=== PATIENT | male | born 1955 | race Caucasian/White ===

== ENCOUNTER 2018-10-26 15:20 | Emergency (ER) | payer OTHER, MEDICAID ==
[~2018-10-26] VITALS: Ht 177.8 cm; Wt 122.5 kg
[~2018-10-26 15:20] MED LIST: AMOXICILLIN 50500 M1 PO; ASPIR 8181 M1 PO; ASPIR 8181 MG PO; ATORVASTATIN CA40 MG PO; CEFTIN 250 MG250 MG PO; CIPRO500 MG PO; CIPROFLOXACIN500 M1 PO; DOXYCYCLINE 10100 MG PO; KEFLEX500 MG PO; LOPRESSOR50; LOPRESSOR50 PO; METFORMIN HCL500 MG PO; NITROSTAT0.3 MG SUBLING; OXYCODONE HCL15 MG PO; PROAIR HFA8.5 GM INH; PROMETHAZINE/C118 ML PO; ROXICODONE15 MG PO; TOPROL XL50 MG PO; ZPAK PO
[2018-10-26 16:09] LABS: ABSOLUTE BASOPHILS 0.1 thou/uL (0.0-0.2); ABSOLUTE EOSINOPHILS 0.2 thou/uL (0.0-0.7); ABSOLUTE LYMPHOCYTES 2.1 thou/uL (0.8-5.3); ABSOLUTE MONOCYTES 1.3 thou/uL (0.0-1.2); ABSOLUTE NEUTROPHILS 7.9 thou/uL (1.6-8.1); BASOPHILS 0.5 %; HEMATOCRIT 44.4 % (42.0-52.0); HEMOGLOBIN 14.9 gm/dL (14.0-18.0); LYMPHOCYTES 18.4 %; MCH 28.9 pg (26.0-34.0); MCHC 33.5 g/dL (28.0-37.0); MCV 86.3 fL (80.0-100.0); MPV 6.8 fl. (7.2-11.1); NUCLEATED RBCS 0 /100WBC; PLATELET COUNT* 270 thou/uL (150-400); POLYS 68.1 %; RBC 5.15 mil/uL (4.50-6.00); RDW-CV 13.9 % (10.5-14.5); WBC 11.6 thou/uL (4.0-11.0)
[2018-10-26] MEDS ORDERED: KEFLEX500 M1 PO (17:03)
[2018-10-26 17:13] VITALS: BP 130/87
== END 2018-10-26 17:14 | disposition home or self-care (01) ==
LOC: M.ERS 15:20
PROVIDERS: Nurse Practitioner Family
DX: R59.1 Generalized enlarged lymph nodes (principal); I10 Essential (primary) hypertension; F17.200 Nicotine dependence, unspecified, uncomplicated; E11.9 Type 2 diabetes mellitus without complications; Z79.82 Long term (current) use of aspirin; Z79.84 Long term (current) use of oral hypoglycemic drugs; Z79.899 Other long term (current) drug therapy; Z91.041 Radiographic dye allergy status; Z88.2 Allergy status to sulfonamides; Z88.8 Allergy status to other drugs, medicaments and biological substances

== ENCOUNTER 2019-01-02 06:43 | Inpatient (IN) | payer OTHER, MEDICAID ==
[~2019-01-02] VITALS: Ht 177.8 cm; Wt 117.9 kg
[~2019-01-02 06:43] MED LIST changes: -ATORVASTATIN CA40 MG PO; +KEFLEX500 M1 PO; +LIPITOR40 MG PO
[2019-01-02 06:58] VITALS: BP 109/73
[2019-01-02 07:30] LABS: ABSOLUTE BASOPHILS 0.1 thou/uL (0.0-0.2); ABSOLUTE EOSINOPHILS 0.3 thou/uL (0.0-0.7); ABSOLUTE LYMPHOCYTES 1.6 thou/uL (0.8-5.3); ABSOLUTE MONOCYTES 1.6 thou/uL (0.0-1.2); ABSOLUTE NEUTROPHILS 10.5 thou/uL (1.6-8.1); BASOPHILS 0.4 %; EOSINOPHILS 1.8 %; HEMATOCRIT 46.7 % (42.0-52.0); LYMPHOCYTES 11.5 %; MCH 29.7 pg (26.0-34.0); MCHC 34.3 g/dL (28.0-37.0); MCV 86.5 fL (80.0-100.0); MONOCYTES 11.5 %; MPV 7.1 fl. (7.2-11.1); NUCLEATED RBCS 0 /100WBC; PLATELET COUNT* 235 thou/uL (150-400); POLYS 74.8 %; RDW-CV 13.9 % (10.5-14.5); WBC 14.1 thou/uL (4.0-11.0)
[2019-01-02 07:41] LABS: CALCIUM 9.3 mg/dL (8.5-10.1); CREATININE 0.8 mg/dL (0.6-1.3); POTASSIUM 4.2 mmol/L (3.5-5.1)
[2019-01-02 07:43] LABS: URINE BLOOD 3+ (Negative); URINE CLARITY CLEAR; URINE COLOR YELLOW; URINE GLUCOSE-RANDOM NEGATIVE (Negative); URINE KETONES NEGATIVE (Negative); URINE NITRITE-REFLEX NEGATIVE (Negative); URINE PROTEIN 3+ (Negative); URINE SPECIFIC GRAVITY >= 1.030 (1.005-1.030)
[2019-01-02 07:44] LABS: URINE BILIRUBIN 1+ (Negative); URINE LEUKOCYTES-REFLEX 2+ (Negative)
[2019-01-02 07:46] LABS: ICTOTEST (BILI CONFIRMATORY) Negative (Negative)
[2019-01-02 07:52] LABS: BACTERIA-REFLEX 1-9 Few /HPF (None Seen); CASTS None Seen /LPF (None Seen); CRYSTALS None Seen /LPF (None Seen); SQUAMOUS 0-3 Few /LPF (0-3); URINE RBC >20 Many /HPF (0-2); URINE WBC-REFLEX >25 Many /HPF (0-5)
[2019-01-02 08:00] LABS: BE 1.5 mmol/L (-2 to +3); PO2 80.4 mmHg (75.0-100.0); pH 7.436 (7.340-7.450)
[2019-01-02 12:18] VITALS: BP 105/62
[2019-01-02 13:00] VITALS: BP 154/87
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
[2019-01-02 15:20] VITALS: BP 149/80
--- NOTE | 2019-01-02 18:37 | NUR ---
PATIENT ALERT AND ORIENTED X 4. VITAL SIGNS STABLE ON ROOM AIR. AFEBRILE. CATHETER PATENT AND DRAINING. IV PATENT WITH FLUIDS INFUSING. PAIN BEING MANAGED WITH PO MEDICATION. DENIES NAUSEA. FALL PRECAUTIONS IN PLACE AND BED ALARM ON. HOURLY ROUNDS MAINTAINED THROUGHOUT THE SHIFT. CALL LIGHT WITHIN REACH. NURSING WILL CONTINUE TO MONITOR.
[2019-01-02 21:53] VITALS: BP 146/83
[2019-01-03 04:42] LABS: ABSOLUTE EOSINOPHILS 0.4 thou/uL (0.0-0.7); ABSOLUTE LYMPHOCYTES 2.2 thou/uL (0.8-5.3); ABSOLUTE MONOCYTES 1.4 thou/uL (0.0-1.2); ABSOLUTE NEUTROPHILS 6.1 thou/uL (1.6-8.1); BASOPHILS 0.3 %; CALCIUM 8.5 mg/dL (8.5-10.1); CREATININE 0.6 mg/dL (0.6-1.3); EOSINOPHILS 4.4 %; HEMATOCRIT 39.8 % (42.0-52.0); LYMPHOCYTES 21.6 %; MCH 29.1 pg (26.0-34.0); MCHC 33.8 g/dL (28.0-37.0); MCV 86.2 fL (80.0-100.0); MONOCYTES 13.5 %; MPV 6.8 fl. (7.2-11.1); NUCLEATED RBCS 0 /100WBC; PLATELET COUNT* 195 thou/uL (150-400); POLYS 60.2 %; POTASSIUM 4.3 mmol/L (3.5-5.1); RBC 4.61 mil/uL (4.50-6.00); RDW-CV 13.8 % (10.5-14.5); WBC 10.1 thou/uL (4.0-11.0)
[2019-01-03 04:50] LABS: HEMOGLOBIN 13.4 gm/dL (14.0-18.0)
--- NOTE | 2019-01-03 04:59 | NUR ---
PATIENT DID NOT REPORT ANY PAIN. JACOBSON CATHETER PLACED AT 2300 WITHOUT ANY ISSUES, URINE OUTPUT CONTINUOUS THROUGH SHIFT. HE DID NOT REPORT ANY PAIN. DID REFUSE INSULIN AT BEDTIME AND WAS CONCERNED ABOUT HIS METFORMIN DOSE, THERE IS ONE FOR 500 MG IN THE AM BUT HE WAS QUESTIONING WHY HE WAS NOT GETTING ONE AT NIGHT. AWAITING CULTURES FOR DC ABX. WILL CONTINUE TO MONITOR.
[2019-01-03 09:00] VITALS: BP 130/77
--- NOTE | 2019-01-03 17:10 | NUR ---
ASSUMED CARE OF PATIENT AT APPROX 0730. ALERT AND ORIENTED X4. ASSESSMENT CPMPLETED AND CHARTED. VSS ON ROOM AIR. PAIN MANAGED WITH SCHEDULED OXY. PATIENT REQUESTED AN "AIR BED" BECAUSE HE IS UNCONFORTABLE, AND HE WANTS A TRAPEZE SO HE CAN GET UP EASIER. CALLED DR CASILLAS, ORDERS GIVEN AND CALLED HOUSE SUP TO SET UP DELIVERY. NO OTHER COMPLAINTS THIS SHIFT. ACCUCHECKS AC, PATIENT REFUSED INSULIN HE DOES NOT USE IT AT HOME, HE ONLY USES METFORMIN. FLUIDS AND ANTIBIOTICS INFUSED ORDERED. FALL PRECAUTIONS IN PLACE. CALL LIGHT WITHIN REACH. HOURLY ROUNDS COMPLETED. NURSING WILL CONTINUE TO MONITOR.
[2019-01-03 20:05] VITALS: BP 149/72
--- NOTE | 2019-01-04 05:34 | NUR ---
PATIENT WAS ABLE TO SLEEP THROUGH NIGHT, REPORTED NO NEW PAIN. HE WAS GIVEN SCHEDULED OXYCODONE 2X. JACOBSON OUTPUT STILL CLEAR AND CONTINUOUS. NO NEW REPORTS OF WORSENING OF CONDITION. THE NEW BED HAS HELPED HIM WITH HIS DISCOMFORT. HOURLY ROUNDS MADE, WILL CONTINUE TO MONITOR.
[2019-01-04 07:50] VITALS: BP 157/87
[2019-01-04 08:44] LABS: ABSOLUTE EOSINOPHILS 0.4 thou/uL (0.0-0.7); ABSOLUTE LYMPHOCYTES 2.1 thou/uL (0.8-5.3); ABSOLUTE NEUTROPHILS 4.7 thou/uL (1.6-8.1); BASOPHILS 0.3 %; EOSINOPHILS 5.2 %; HEMATOCRIT 38.2 % (42.0-52.0); HEMOGLOBIN 13.1 gm/dL (14.0-18.0); LYMPHOCYTES 25.7 %; MCH 29.7 pg (26.0-34.0); MCHC 34.4 g/dL (28.0-37.0); MCV 86.4 fL (80.0-100.0); MONOCYTES 12.2 %; MPV 6.6 fl. (7.2-11.1); NUCLEATED RBCS 0 /100WBC; PLATELET COUNT* 194 thou/uL (150-400); POLYS 56.6 %; RBC 4.42 mil/uL (4.50-6.00); RDW-CV 13.8 % (10.5-14.5); WBC 8.2 thou/uL (4.0-11.0)
[2019-01-04 09:10] LABS: ALBUMIN 2.4 g/dL (3.4-5.0); CALCIUM 8.7 mg/dL (8.5-10.1); CREATININE 0.6 mg/dL (0.6-1.3); POTASSIUM 4.1 mmol/L (3.5-5.1); TOTAL BILIRUBIN 0.3 mg/dL (<0.1-1.0); TOTAL PROTEIN 6.6 g/dL (6.4-8.2)
[2019-01-04 16:00] VITALS: BP 147/79
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
[2019-01-04 20:00] VITALS: BP 167/77
--- NOTE | 2019-01-04 20:43 | NUR ---
ASSUMED CARE OF PATIENT AT APPROX 0730. ALERT AND ORIENTED X4. ASSESSMENT COMPLETED AND CHARTED. VSS ON ROOM AIR. FLUIDS AND ANTIBIOTICS INFUSED ORDERED. PAIN MANAGED WITH SCHEDULED OXY. ACCUCHECKS AC, PATIENT TAKES ORALS ONLY. PATIENT HAS AN AIR FLUIDIZATION BED FROM [facility] TO REDUCE RISK FOR PRESSURE WOUNDS. BED IS HAVING ISSUES, [facility] PAGED AND THEY WILL BE COMING OUT TO CHECK IT OUT OR REPLACE IT. CALL LIGHT WITHIN REACH. HOURLY ROUNDS COMPLETED. NURSING WILL CONTINUE TO MONITOR.
[2019-01-05 03:15] VITALS: BP 183/87
[2019-01-05 04:30] VITALS: BP 158/80
[2019-01-05 04:31] LABS: ABSOLUTE EOSINOPHILS 0.4 thou/uL (0.0-0.7); ABSOLUTE LYMPHOCYTES 2.2 thou/uL (0.8-5.3); ABSOLUTE MONOCYTES 0.9 thou/uL (0.0-1.2); ABSOLUTE NEUTROPHILS 5.8 thou/uL (1.6-8.1); BASOPHILS 0.3 %; EOSINOPHILS 4.2 %; HEMATOCRIT 38.3 % (42.0-52.0); HEMOGLOBIN 12.8 gm/dL (14.0-18.0); LYMPHOCYTES 23.9 %; MCH 28.9 pg (26.0-34.0); MCHC 33.3 g/dL (28.0-37.0); MCV 86.9 fL (80.0-100.0); MPV 7.4 fl. (7.2-11.1); NUCLEATED RBCS 0 /100WBC; PLATELET COUNT* 200 thou/uL (150-400); POLYS 61.6 %; RBC 4.41 mil/uL (4.50-6.00); RDW-CV 13.8 % (10.5-14.5); WBC 9.4 thou/uL (4.0-11.0)
[2019-01-05 04:49] LABS: ALBUMIN 2.3 g/dL (3.4-5.0); CALCIUM 8.5 mg/dL (8.5-10.1); CREATININE 0.6 mg/dL (0.6-1.3); POTASSIUM 3.9 mmol/L (3.5-5.1); TOTAL BILIRUBIN 0.2 mg/dL (<0.1-1.0); TOTAL PROTEIN 6.6 g/dL (6.4-8.2)
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
[2019-01-05 08:30] VITALS: BP 158/84
[2019-01-05 11:53] VITALS: BP 158/84
[2019-01-05 12:07] VITALS: BP 158/84
[2019-01-05] MEDS ORDERED: CEFUROXIME500 MG PO (12:16)
--- NOTE | 2019-01-05 13:58 | NUR ---
PATIENT DISCHARGED FROM UNIT AT 1355. ALERT AND ORIENTED X 4. VITAL SIGNS STABLE ON ROOM AIR. AFEBRILE. IV DISCONTINUED. JACOBSON CATHETER DISCONTINUED. PAIN BEING MANAGED WITH PO MEDICATION. DENIES NAUSEA. DISCHARGE INSTRUCTIONS, MEDICATION INFORMATION, AND SCRIPT GIVEN TO PATIENT. LEFT WITH ALL BELGONINGS. PATIENT LEFT WITH SON VIA
[2019-01-05 14:00] VITALS: BP 158/84
== END 2019-01-05 13:55 | disposition home or self-care (01) | DRG 872 ==
LOC: M.ERS 06:43 → M.ORTHSURG 09:11 → M.TBA-ER 09:11 → M.ORTHSURG 12:24
PROVIDERS: Personal Emergency Response Attendant; ADMIT Internal Medicine
DX: A41.9 Sepsis, unspecified organism (principal); N39.0 Urinary tract infection, site not specified; G82.20 Paraplegia, unspecified; I10 Essential (primary) hypertension; F17.220 Nicotine dependence, chewing tobacco, uncomplicated; E11.65 Type 2 diabetes mellitus with hyperglycemia; E88.09 Other disorders of plasma-protein metabolism, not elsewhere classified; N31.9 Neuromuscular dysfunction of bladder, unspecified; B96.1 Klebsiella pneumoniae [K. pneumoniae] as the cause of diseases classified elsewhere; Z95.5 Presence of coronary angioplasty implant and graft; Z88.2 Allergy status to sulfonamides; Z88.8 Allergy status to other drugs, medicaments and biological substances; Z88.6 Allergy status to analgesic agent; Z91.041 Radiographic dye allergy status; Z23 Encounter for immunization

== ENCOUNTER 2020-03-25 16:12 | Emergency (ER) | payer OTHER, MEDICAID ==
[~2020-03-25] VITALS: Ht 175.3 cm; Wt 117.9 kg
--- NOTE | ~2020-03-25 | EKG ---
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
--- NOTE | ~2020-03-25 | EMS ---
[place] [address] EMS Patient Care Report Name: DIVINA RINALDI Room: PRE [facility]#: [id number] Admission: Attend Phys: Discharge: Date of : 51 Report #: [id number] THIS REPORT FOR: //name// Report Transmitted: 03/25/2020 16:29 EMS Care Summary [facility] Incident [id number] @ 03/25/2020 15:15 Incident Location [address] [place] [address] Patient DIVINA RINALDI Male, 64 Years 1955 Patient Address [address] [place] [address] Patient History Diabetes,Hypertension (HTN),Quadriplegia, Patient Allergies No known allergies, Chief Complaint Body Aches Disposition Transported No Lights/[place] Dispatch Reason Sick Person Transported To [facility] Narrative Med 1 and Engine 1 were dispatched for a [age] year-old male c/o body aches. Upon arrival, patients son was standing outside and directed us into the living room where the patient had a hospital bed set up due to the patient being a quadriplegic. The patient reported that he has had body aches for the last three days. The patient denied any other symptoms. The patient was moved to the stretcher via sheet and secure via seatbelts [place] [address] EMS Patient Care Report Name: DIVINA RINALDI Room: PRE [facility].#: [id number] Admission: Attend Phys: Discharge: Date of : 51 Report #: [id number] without incident. Med 1 was going to transport the patient to [facility] but they were on high volume so he chose [facility] instead. Patient was placed on the night monitor and vitals were obtained. Patient was AOX3, he had no fever and a blood glucose reading was obtained with a result of 183 mg/dL. Hospital report was given via radio with no questions or orders received or requested. Med 1 arrived at the hospital. Patient was moved into the ambulance via stretcher without incident. Patient care was transferred to ER staff in room 11. Med 1 returned back into service. KShook [id number] Initial Vitals @15:48P: 91,R: 18,BP: 132/85,SpO2: 95, @15:59P: 91,R: 18,BP: 146/77,GCS: 15,SpO2: 94,Revised Trauma: 12, @15:39P: 96,R: 18,BP: 146/89,Pain: 2/10,GCS: 15,Temp: 97.4F,Glucose: 183,SpO2: 95,Revised Trauma: 12, Assessments @16:02MENTAL:No Abnormalities,SKIN:No Abnormalities,HEENT:Head/Face: No Abnormalities,Eyes: No Abnormalities,Neck/Airway: No Abnormalities,LUNG SOUNDS:General: No Abnormalities,Left Upper: No Abnormalities,Right Upper: No Abnormalities,Left Lower: No Abnormalities,Right Lower: No Abnormalities,ABDOMEN:General: No Abnormalities,Left Upper: No Abnormalities,Right Upper: No Abnormalities,Left Lower: No Abnormalities,Right Lower: No Abnormalities,PELVIS//GI:EXTREMITIES:Left Leg: Paralysis,Right Leg: Paralysis,Left Arm: No Abnormalities,Right Arm: No Abnormalities,PULSE:NEURO:No Abnormalities, Impression Generalized Weakness Procedures @15:52StretcherResponse: Unchanged Timeline 15:15,Call Received 15:15,Dispatched 15:15,En Route 15:26,On Scene 15:27,At Patient 15:39,BP: 146/89 M,PULSE: 96,RR: 18 R,SPO2: 95 Ox,ETCO2: ,B,PAIN: 2,GCS: 15, [place] [address] EMS Patient Care Report Name: DIVINA RINALDI Room: PRE [facility].#: [id number] Admission: Attend Phys: Discharge: Date of : 51 Report #: [id number] 15:43,Depart Scene 15:48,BP: 132/85 M,PULSE: 91,RR: 18 R,SPO2: 95 Ox,ETCO2: ,BG: ,PAIN: ,GCS: , 15:52,Stretcher,Response: Unchanged 15:59,BP: 146/77 M,PULSE: 91,RR: 18 R,SPO2: 94 Ox,ETCO2: ,BG: ,PAIN: ,GCS: 15, 16:09,At Destination 16:47,Call Closed 16:47,In District Disclaimer v1.1 Copyright 2020 [employer] This EMS Care Summary contains data elements from the applicable legal record (which may be displayed differently). It is designed to provide pertinent information for the following purposes: continuity of care, clinical quality, and state data reporting. The complete legal record is available to ED staff and administrators of the receiving hospital in [employer]'s Patient Tracker. All data is provided "as is."
[~2020-03-25 16:12] MED LIST changes: +CEFUROXIME500 MG PO
[2020-03-25] MEDS ORDERED: NORVASC5 MG PO (16:28)
[2020-03-25] MEDS ORDERED: TOPROL XL50 MG PO (16:29)
[2020-03-25] MEDS ORDERED: VITAMIN C500 M2 PO (16:29)
[2020-03-25 16:40] LABS: ABSOLUTE BASOPHILS 0.1 thou/uL (0.0-0.2); ABSOLUTE LYMPHOCYTES 0.9 thou/uL (0.8-5.3); ABSOLUTE MONOCYTES 2.1 thou/uL (0.0-1.2); ABSOLUTE NEUTROPHILS 15.3 thou/uL (1.6-8.1); BASOPHILS 0.4 %; EOSINOPHILS 0.1 %; HEMATOCRIT 39.8 % (42.0-52.0); HEMOGLOBIN 13.3 gm/dL (14.0-18.0); LYMPHOCYTES 4.9 %; MCH 29.2 pg (26.0-34.0); MCHC 33.5 g/dL (28.0-37.0); MCV 87.2 fL (80.0-100.0); MONOCYTES 11.5 %; MPV 6.8 fl. (7.2-11.1); NUCLEATED RBCS 0 /100WBC; PLATELET COUNT* 216 thou/uL (150-400); POLYS 83.1 %; RBC 4.57 mil/uL (4.50-6.00); RDW-CV 13.7 % (10.5-14.5); WBC 18.4 thou/uL (4.0-11.0)
[2020-03-25 16:51] LABS: POTASSIUM 3.7 mmol/L (3.5-5.1)
[2020-03-25 16:56] LABS: ALBUMIN 2.6 g/dL (3.4-5.0); TOTAL BILIRUBIN 0.9 mg/dL (<0.1-1.0); TOTAL PROTEIN 7.4 g/dL (6.4-8.2)
[2020-03-25 18:05] LABS: URINE BILIRUBIN NEGATIVE (Negative); URINE BLOOD 1+ (Negative); URINE CLARITY CLEAR; URINE COLOR YELLOW; URINE GLUCOSE-RANDOM NEGATIVE (Negative); URINE KETONES NEGATIVE (Negative); URINE LEUKOCYTES-REFLEX 2+ (Negative); URINE NITRITE-REFLEX NEGATIVE (Negative); URINE PROTEIN 1+ (Negative); URINE SPECIFIC GRAVITY 1.025 (1.005-1.030)
[2020-03-25 18:10] LABS: BACTERIA-REFLEX >30 Many /HPF (None Seen); URINE WBC-REFLEX >25 Many /HPF (0-5)
[2020-03-25 18:11] LABS: CASTS None Seen /LPF (None Seen); MUCUS 0-3 Light strn/LPF (None Seen); SQUAMOUS NONE SEEN /LPF (0-3); URINE RBC 0-2 Rare /HPF (0-2)
[2020-03-25 18:12] LABS: CRYSTALS None Seen /LPF (None Seen)
[2020-03-25] MEDS ORDERED: AUGMENTIN 875-1 EACH PO (18:26)
[2020-03-25 20:24] VITALS: BP 132/72
== END 2020-03-25 20:24 | disposition home or self-care (01) ==
LOC: M.ERS 16:12
PROVIDERS: Emergency Medicine Emergency Medical Services
DX: N39.0 Urinary tract infection, site not specified (principal); Z20.828 Contact with and (suspected) exposure to other viral communicable diseases; I10 Essential (primary) hypertension; E11.9 Type 2 diabetes mellitus without complications; F17.220 Nicotine dependence, chewing tobacco, uncomplicated; Z79.899 Other long term (current) drug therapy; Z79.82 Long term (current) use of aspirin; Z88.8 Allergy status to other drugs, medicaments and biological substances; Z88.2 Allergy status to sulfonamides

== ENCOUNTER 2020-03-30 05:47 | Emergency (ER) | payer OTHER, MEDICAID ==
[~2020-03-30] VITALS: Ht 182.9 cm; Wt 50.9 kg
--- NOTE | ~2020-03-30 | EMS ---
[facility] [address] [place] [address] EMS Patient Care Report Name: DIVINA RINALDI Room: [facility]#: [id number] Admission: 03/30/20 Attend Phys: Discharge: Date of : 51 Report #: [id number] THIS REPORT FOR: //name// Report Transmitted: 03/30/2020 06:16 EMS Care Summary [facility] Incident [id number] @ 03/30/2020 04:41 Incident Location [address] [place] [address] Patient DIVINA RINALDI Male, 64 Years 1955 Patient Address [address] [place] [address] Patient History Diabetes,Hypertension (HTN),Quadriplegia, Patient Allergies No known allergies, Patient Medications Metformin, Metoprolol, Atorvastatin, Chief Complaint hypotension Disposition Transported No Lights/[place] Dispatch Reason Sick Person Transported To [facility] Narrative Dispatched to a residence for 64y/o male paraplegic with hypotension. Pt. has history of diabetes. Upon arrival pt. was alert but confused. Pt. BP was 71/42 and BG 340. Pt. was laid supine. En route IV was started and NS bolus started. Pt. and family requested transport to [facility] but they stated they were [address] [place] [address] EMS Patient Care Report Name: DIVINA RINALDI Room: [facility]#: [id number] Admission: 03/30/20 Attend Phys: Discharge: Date of : 51 Report #: [id number] closed to ambulances and diverted. With positioning and NS BP increased to 90/50. Pt. was transported to [facility] due to diversion for emergency services. Initial Vitals @05:40P: 93,R: 20,BP: 82/45,SpO2: 94, @05:20P: 93,R: 20,BP: 77/51,SpO2: 94, @05:30P: 93,R: 20,BP: 90/50,GCS: 14,Glucose: 340,SpO2: 94,Revised Trauma: 12, @05:00P: 96,R: 20,BP: 71/42,Pain: 0/10,GCS: 14,Temp: 97F,Glucose: 306,SpO2: 95,Revised Trauma: 10,[place] Suspected: false @05:10P: 94,R: 20,BP: 59/33,SpO2: 96, Assessments @04:55MENTAL:Confused,Person Oriented,SKIN:Pale,HEENT:Head/Face: No Abnormalities,Eyes: No Abnormalities,Neck/Airway: No Abnormalities,LUNG SOUNDS:General: No Abnormalities,Left Upper: No Abnormalities,Right Upper: No Abnormalities,Left Lower: No Abnormalities,Right Lower: No Abnormalities,ABDOMEN:General: No Abnormalities,Left Upper: No Abnormalities,Right Upper: No Abnormalities,Left Lower: No Abnormalities,Right Lower: No Abnormalities,PELVIS//GI:EXTREMITIES:Left Leg: Other,Right Leg: Other,Left Arm: No Abnormalities,Right Arm: No Abnormalities,PULSE:NEURO:No Abnormalities, Impression Hypotension Procedures @05:15Saline Lock 10cc (20 ga) Site: Forearm-LeftResponse: UnchangedFailed@05:20Normal Saline (.9% NaCl) 250cc (22 ga) Site: Hand-RightResponse: ImprovedSucceeded Timeline 04:38,Call Received 04:41,Dispatched 04:44,En Route 04:53,Initial Responder On Scene 04:53,On Scene 04:55,At Patient 05:00,BP: 71/42 M,PULSE: 96,RR: 20 R,SPO2: 95 Ox,ETCO2: ,B,PAIN: 0,GCS: 14, 05:09,Depart Scene 05:10,BP: 59/33 M,PULSE: 94,RR: 20 R,SPO2: 96 Ox,ETCO2: ,BG: ,PAIN: ,GCS: , 05:15,Saline Lock 10cc 20 ga Site: Forearm-Left,Response: UnchangedFailed, 05:20,Normal Saline (.9% NaCl) 250cc 22 ga Site: Hand-Right,Response: ImprovedSucceeded, 05:20,BP: 77/51 M,PULSE: 93,RR: 20 R,SPO2: 94 Ox,ETCO2: ,BG: ,PAIN: ,GCS: , [place] [address] EMS Patient Care Report Name: DIVINA RINALDI Room: [facility]#: [id number] Admission: 03/30/20 Attend Phys: Discharge: Date of : 51 Report #: [id number] 05:30,BP: 90/50 M,PULSE: 93,RR: 20 R,SPO2: 94 Ox,ETCO2: ,B,PAIN: ,GCS: 14, 05:40,BP: 82/45 M,PULSE: 93,RR: 20 R,SPO2: 94 Ox,ETCO2: ,BG: ,PAIN: ,GCS: , 05:43,At Destination 05:45,Transfer Patient 06:27,Call Closed 06:27,In District Disclaimer v1.1 Copyright 2020 [employer] This EMS Care Summary contains data elements from the applicable legal record (which may be displayed differently). It is designed to provide pertinent information for the following purposes: continuity of care, clinical quality, and state data reporting. The complete legal record is available to ED staff and administrators of the receiving hospital in [facility]'s Patient Tracker. All data is provided "as is."
[~2020-03-30 05:47] MED LIST changes: +AUGMENTIN 875-1 EACH PO; +NORVASC5 MG PO; +VITAMIN C500 M2 PO
[2020-03-30] MEDS ORDERED: HIPREX1 GM PO (06:12)
[2020-03-30] MEDS ORDERED: METFORMIN HCL500 M3 PO (06:12)
[2020-03-30 06:25] LABS: NUCLEATED RBCS 0 /100WBC
[2020-03-30 06:28] LABS: INFLUENZA A ANTIGEN Negative (Negative); INFLUENZA B ANTIGEN Negative (Negative)
[2020-03-30 06:29] LABS: MCH 28.8 pg (26.0-34.0); MCHC 31.7 g/dL (28.0-37.0); MCV 90.8 fL (80.0-100.0); MPV 7.4 fl. (7.2-11.1); PLATELET COUNT* 343 thou/uL (150-400); RBC 1.09 mil/uL (4.50-6.00); RDW-CV 13.8 % (10.5-14.5)
[2020-03-30 06:30] LABS: HEMOGLOBIN 3.1 gm/dL (14.0-18.0); WBC 43.9 thou/uL (4.0-11.0)
[2020-03-30 06:31] LABS: HEMATOCRIT 9.9 % (42.0-52.0)
[2020-03-30 06:35] LABS: CALCIUM 8.3 mg/dL (8.5-10.1); CREATININE 1.3 mg/dL (0.6-1.3); POTASSIUM 4.9 mmol/L (3.5-5.1)
[2020-03-30 06:38] LABS: APTT 20.6 Seconds (25.0-31.3); INR 1.1
[2020-03-30 06:46] LABS: ALBUMIN 1.8 g/dL (3.4-5.0); TOTAL BILIRUBIN 0.1 mg/dL (<0.1-1.0); TOTAL PROTEIN 5.1 g/dL (6.4-8.2)
[2020-03-30 07:06] LABS: ABSOLUTE BASOPHILS 0.4 thou/uL (0.0-0.2); ABSOLUTE EOSINOPHILS 0.9 thou/uL (0.0-0.7); ABSOLUTE LYMPHOCYTES 5.3 thou/uL (0.8-5.3); ABSOLUTE MONOCYTES 3.1 thou/uL (0.0-1.2); ABSOLUTE NEUTROPHILS 34.2 thou/uL (1.6-8.1); METAMYELOCYTES 4 %
[2020-03-30 07:07] LABS: ANISOCYTOSIS 1+; PLATELET ESTIMATE ADEQUATE
[2020-03-30 07:08] LABS: HYPOCHROMASIA 3+; TOXIC GRANULATION 1+
[2020-03-30 07:09] LABS: POLYCHROMASIA 1+
[2020-03-30 07:19] LABS: URINE BILIRUBIN NEGATIVE (Negative); URINE BLOOD TRACE (Negative); URINE CLARITY CLEAR; URINE COLOR YELLOW; URINE GLUCOSE-RANDOM NEGATIVE (Negative); URINE KETONES NEGATIVE (Negative); URINE LEUKOCYTES-REFLEX TRACE (Negative); URINE NITRITE-REFLEX NEGATIVE (Negative); URINE PROTEIN NEGATIVE (Negative); URINE UROBILINOGEN 0.2 E.U./dl (0.2-1.0)
[2020-03-30 07:37] LABS: BE -12.3 mmol/L (-2 to +3); PCO2 29.7 mmHg (35.0-45.0); pH 7.274 (7.340-7.450)
[2020-03-30 07:39] LABS: PO2 135.4 mmHg (75.0-100.0)
[2020-03-30 07:41] LABS: SQUAMOUS 0-3 Few /LPF (0-3)
[2020-03-30 07:42] LABS: URINE WBC-REFLEX 6-15 Few /HPF (0-5); WBC CLUMPS Few (None Seen)
[2020-03-30 07:43] LABS: CRYSTALS None Seen /LPF (None Seen); HYALINE CASTS 4-10 Moderate /LPF (None Seen); MUCUS 0-3 Light strn/LPF (None Seen); URINE RBC 0-2 Rare /HPF (0-2)
[2020-03-30 09:05] VITALS: BP 105/52
--- NOTE | 2020-03-30 12:24 | EKG ---
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 <ELECTRONICALLY SIGNED> By: Sae Jose MD, FACC 03/30/20 1224 0549 0549 Sae Jose MD, FACC /EPI
== END 2020-03-30 09:09 | disposition short-term general hospital (02) ==
LOC: M.ERS 05:47
PROVIDERS: Emergency Medicine Emergency Medical Services; Family Medicine
DX: A41.9 Sepsis, unspecified organism (principal); Z20.828 Contact with and (suspected) exposure to other viral communicable diseases; K92.2 Gastrointestinal hemorrhage, unspecified; D64.9 Anemia, unspecified; N39.0 Urinary tract infection, site not specified; E87.1 Hypo-osmolality and hyponatremia; I10 Essential (primary) hypertension; E11.9 Type 2 diabetes mellitus without complications; F17.220 Nicotine dependence, chewing tobacco, uncomplicated; Z79.899 Other long term (current) drug therapy; Z79.82 Long term (current) use of aspirin; Z88.8 Allergy status to other drugs, medicaments and biological substances; Z88.2 Allergy status to sulfonamides

== ENCOUNTER 2020-09-23 04:36 | Emergency (ER) | payer OTHER, MEDICAID ==
[~2020-09-23] VITALS: Ht 175.3 cm; Wt 92.5 kg
[~2020-09-23 04:36] MED LIST changes: +HIPREX1 GM PO; +METFORMIN HCL500 M3 PO
[2020-09-23 06:13] VITALS: BP 119/55
== END 2020-09-23 06:14 | disposition home or self-care (01) ==
LOC: M.ERS 04:36
DX: T83.091A Other mechanical complication of indwelling urethral catheter, initial encounter (principal); I10 Essential (primary) hypertension; Z88.8 Allergy status to other drugs, medicaments and biological substances; Z88.2 Allergy status to sulfonamides; Z91.041 Radiographic dye allergy status; Z79.82 Long term (current) use of aspirin; Z79.899 Other long term (current) drug therapy; Z95.1 Presence of aortocoronary bypass graft